=== PATIENT | male | born 2005 | race Caucasian/White ===

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

== ENCOUNTER 2023-10-27 11:31 | Emergency (ER) | payer OTHER, SELFPAY ==
--- NOTE | ~2023-10-27 | XR_ITS ---
EXAMINATION: XR hand LT min 3V DATE: 10/27/2023 11:50 INDICATION: Left hand injury and pain. TECHNIQUE: 3 views of left hand were obtained. COMPARISON: Left hand radiographs 06/08/2021 FINDINGS: There is an extra-articular oblique fracture of first metacarpal. The distal fracture fragm ent demonstrates 3 mm ulnar displacement and 4 mm palmar displacement. Joint spaces are normal. IMPRESSION: 1. Oblique fracture of first metacarpal. Reviewed, dictated and finalized at location A.
[2023-10-27 11:42] VITALS: BP 126/66; PULSE 55; RESP 18; TEMP 37.1; O2SAT 100
--- NOTE | 2023-10-27 11:43 | ED.UPPEXIN ---
HPI - Extremity Injury (Upper) General Chief Complaint: Extremity Injury, Upper Stated Complaint: x-ray for left hand Time Seen by Provider: 10/27/23 11:50 Source: patient and RN notes reviewed Mode of arrival: ambulatory Limitations: no limitations History of Present Illness HPI narrative: 18-year-old male presents concern for left hand injury. Reports this morning he caught the hand between 2 heavy metal parts on a tractor. Reports swelling, pain beneath the 1st digit. Denies decreased strength, sensation MD complaint: injury to: left and hand Related Data Home Medications Medication Instructions Recorded Confirmed albuterol 90 mcg/actuation aerosol 90 mcg inhalation PRN PRN 10/27/23 10/27/23 inhaler Shortness Of Breath Or Wheezing Allergies Allergy/AdvReac Type Severity Reaction Status Date / Time pineapple AdvReac Intermediate Swelling Verified 10/27/23 11:39 amoxicillin AdvReac Mild Rash Verified 10/27/23 11:39 clavulanic acid AdvReac Mild Rash Verified 10/27/23 11:39 Review of Systems Review of Systems: CONSTITUTIONAL: Denies malaise, chills, sweats, or fever. SKIN: Denies rash or itching, open skin, laceration, abrasion, redness, warmth MUSCULOSKELETAL: Reports left hand pain and swelling NEUROLOGIC: Denies numbness, weakness All systems reviewed & are unremarkable except as noted in HPI and below PMFSH Past Medical History Medical History (Updated 10/27/23 @ 12:00 by Lakeshia Hurst NP) Asthma Gilbert syndrome Surgical History Surgical History (Updated 11/19/20 @ 11:35 by Qing Mckee MD) No pertinent past surgical history Social History Social History (Updated 11/19/20 @ 11:35 by Qing Mckee MD) Smoking status: Never smoker Alcohol intake: current Substance use: never Comments At time of signature, agree with nursing past medical, surgical, social and family history. There is no relevant family history pertinent to the presenting complaint Exam Narrative: GENERAL: Well-appearing, well-nourished, and in no acute distress. HEAD: Normocephalic EYES: PERRLA, conjunctivae clear NECK: Supple. CHEST: Speaks in full sentences. No respiratory distress. HEART: Regular rate and rhythm. Normal and equal peripheral pulses. EXTREMITIES: Left hand and digits of hand have grossly normal strength and sensation. 5/5 strength with for digit flexion, extension. Range of motion in the 1st digit limited due to swelling and pain. No clubbing, cyanosis. Edema and tenderness noted beneath the 1st digit. Skin intact. Normal digital cascade with flexion of fingers, median, ulnar and radial nerve intact. Normal sensation of each side of finger. No scissoring. Normal thumb opposition. Good capillary refill and radial pulse. Distal capillary refill less than 3 seconds. Patient is right/left hand dominant SKIN: Warn, dry, intact, pink. No rash NEURO: Alert and oriented x3. PSYCH: Normal mood and affect Course Course Emergency Course: Patient is aware of diagnosis, understands and agrees to treatment plan. Anticipatory guidance given. Patient agrees to follow-up as directed and is aware of reasons to seek care at the emergency department. Portions of this record may have been created with voice recognition software Level of Care: Express Care Visit Vital Signs Vital signs: Reviewed. Procedures Orthopedic Splinting/Casting Injury #1: Splinting/Casting Date: 10/27/23 Splinting/Casting Time: 12:00 Side: left Upper Extremity Injury Location: hand Splint: customized in ED OCL: thumb spica Pre-Procedure Neuro Vascular Exam: normal Post-Procedure Neuro Vascular Exam: normal Other Orthopedic Equipment: other (sling) MDM - Extremity Injury (Upper) Imaging Data My impression: Images reviewed, interpreted by radiologist, agree, see report. Radiologist's impression: EXAMINATION: XR hand LT min 3V DATE: 10/27/2023 11:50 I
== END 2023-10-27 12:09 | disposition home or self-care (01) ==
PROVIDERS: Emergency Provider Nurse Practitioner
DX: S62.292A Other fracture of first metacarpal bone, left hand, initial encounter for closed fracture (principal); X58.XXXA Exposure to other specified factors, initial encounter; J45.909 Unspecified asthma, uncomplicated; E80.4 Gilbert syndrome
CPT/HCPCS: 29125; 73130; 99214; A4565; G0463

== ENCOUNTER 2023-10-29 11:53 | Day surgery (SDC) | payer OTHER, SELFPAY ==
--- NOTE | 2023-10-28 11:05 | SUR.PREOP ---
During pre-op interview regarding surgery at [facility], pt states has Gilbert's syndrome and get jaundice about one time per week. Spoke with Dr. Ludwig regarding pt's condition who states pt okay to come to [facility] for surgery.
--- NOTE | ~2023-10-29 | XR_ITS ---
XR surgery orthopedic Ordering provider: Tre Gonzales MD History: . CL REDUCTION LEFT 1ST METACARPAL PINNING . Comparison: None. FINDINGS impression: Intraoperative films for fixation of the first metacarpal bone fracture. 2 K wires were placed. Good alignment is seen. Fluoroscopy time 1 minute and 5 seconds. Total Dopp 6.7 cGY/cm2. Reviewed, dictated and finalized at location A.
--- NOTE | 2023-10-29 07:06 | WPDHPUPDATE1 ---
History and Physical Update Update Date/Time: 10/29/23 07:06 Patient seen and examined in pre-operative holding area. No interval change in medical history or symptoms. Patient recalls previous discussion of benefits and alternatives to procedure. Continues to desire to proceed with left thumb closed possible open reduction and pin fixation. Reviewed procedure, post-op expectations and risks including but not limited to bleeding, infection, injury to tendon/nerve/vessel, decreased hand function, stiffness, RSD, no change or worsening of symptoms, malunion, nonunion. I discussed the possible use of assistants and their participation in the case. Patient stated understanding and signed the consent form wishing to proceed.
--- NOTE | 2023-10-29 07:07 | W.PM.PROC2 ---
Procedure Note - Detailed Date of Procedure 10/29/23 Pre-op Diagnosis Left Hand Fracture of First Metacarpal Bone Post-op Diagnosis Same Procedure Performed left thumb metacarpal fracture crpp Surgeon Tre Gonzales MD Anesthesia MAC Description of Procedure INFORMED CONSENT: The patient was seen and examined and marked in the pre-op area.? The patient signed the consent form. PROCEDURE IN DETAIL:The patient taken back to OR on the stretcher in supine position. Time out performed with anesthesia, surgeon and staff agreeing on patient's name site and surgery to be performed SCDs were placed on the lower extremities and inflated. A tourniquet was placed on {left} upper extremity and antibiotics given IV After anesthesia administered sedation I injected {6}cc 1%lido and 0.5% marcaine plain at the operative site The?{left upper extremity}?was prepped and draped in sterile fashion the??{left upper extremity} was? exsanguinated with Esmarch bandage and tourniquet inflated to 250mmHg The mini C-arm was draped and brought into the field. Using fluoroscopy I identified the fracture and proceeded with closed reduction maneuvers. I was able to achieve reasonable reduction with these maneuvers though this was unstable. I proceeded with placing two 0.045 K-wires in retrograde crossing fashion to secure the fracture. Pin placement and fracture reduction was evaluated with multiple views of fluoroscopy and appeared stable and well reduced. The pins were trimmed to an appropriate length. The pins were covered with a Betadine-soaked alcohol swab. A dressing of 4x4, asher, and a thumb spica splint was then applied and secured with an leo bandage after the tourniquet was let down noting the hand was warm and well perfused. The patient was then awaken from anesthesia and transferred to the recovery room in stable condition.? Complications - none EBL- 0cc Disposition - home in stable conditions [facility] Billing Surgery - Charge Forward: Surgery Billing ([id number] )
[2023-10-29] MEDS: LACTATED RINGERS 1,000 ML 30 ML IV CONT (12:30)
--- NOTE | 2023-10-29 12:30 | WPDANESEPPF ---
Anes - Initial Pre Proc Eval Procedure: Operation Date: 10/29/23 13:30 Proposed Procedures p Left Thumb Metacarpal Fracture Closed Reduction Perutaneous Pinning, Possible Open Reduction Internal Fixation - Tre Gonzales MD Date/Time: 10/29/23 12:30 Surgeon: Tre Gonzales MD Pre Op Diagnosis: Left Hand Fracture of First Metacarpal Bone Patient Data Age: 18 Gender: M Height: 1.8 m Weight: 66 kg Allergies Allergy/AdvReac Type Severity Reaction Status Date / Time pineapple AdvReac Intermediate Swelling Verified 10/29/23 12:19 amoxicillin AdvReac Mild Rash Verified 10/29/23 12:19 clavulanic acid AdvReac Mild Rash Verified 10/29/23 12:19 Home Medications Medication Instructions Recorded Confirmed Type albuterol 90 mcg/actuation aerosol 90 mcg inhalation PRN PRN 10/27/23 10/29/23 History inhaler Shortness Of Breath Or Wheezing cephalexin 500 mg capsule 500 mg PO Q8H #21 caps 10/29/23 Rx hydrocodone 5 mg-acetaminophen 325 1 tablet PO Q6H PRN pain #12 tabs 10/29/23 Rx mg tablet Patient hx anesthesia problems: none Family hx anesthesia problems: post op nausea/vomiting Results Review: All pre-operative results and documents have been reviewed as part of the pre-operative evaluation. [facility] Past Medical History Medical History Asthma Gilbert syndrome Surgical History Surgical History No pertinent past surgical history Social History Social History Smoking status: Current every day smoker Tobacco type: e-cigarettes/vaping Alcohol intake: current Drinks per week: 6 Substance use: former Substance use type: marijuana Anes - Eval Final PreProcedure Day of Procedure 10/29/23 12:30 Patient weight: normal Heart: regular rate and rhythm Lungs: clear to auscultation Airway: Mallampati scale class II Neurological: alert and oriented Last oral intake: >/= 8 hours ASA classification: III Emergent: no Anesthetic plan: proceed Anesthesia type and monitoring: general LMA and standard monitoring Results Review: All pre-operative results and documents have been reviewed as part of the pre-operative evaluation. Informed Consent: The patient's anesthetic plan and its attendant risks and benefits were discussed with the patient/family/POA. Questions were solicited and answers provided to the satisfaction of the patient/family/POA.
[2023-10-29 12:31] VITALS: BP 127/76; PULSE 63; RESP 15; TEMP 37.5; O2SAT 100
[2023-10-29] MEDS: ceFAZolin SODIUM 2 GM/20 ML SW SYRINGE IV PUSH (12:48)
[2023-10-29] MEDS: LIDOCAINE HCL 1% LOCAL INJ 20 ML VIAL 4 ML INFILTRATE (12:58)
[2023-10-29] MEDS: BUPivacaine HCL 0.5% 10 ML AMP 4 ML INFILTRATE (12:58)
[2023-10-29 13:28] VITALS: BP 82/52; PULSE 48; RESP 12; O2SAT 97
--- NOTE | 2023-10-29 13:40 | WPDANESPN ---
Anes - Prog Note Post-Op Date/Time: 10/29/23 13:40 Cardiovascular status: normal Respiratory status: normal Airway patency: baseline Mental status: baseline Post-Op hydration status: normal Vital Signs: Last Vital Signs Temp 37.5 C 10/29/23 12:31 Pulse 48 L 10/29/23 13:28 Resp 12 10/29/23 13:28 BP 82/52 L 10/29/23 13:28 Pulse Ox 97 10/29/23 13:28 O2 Del Method Room Air 10/29/23 13:28 Pain Score (VAS): 0 I/O: Intake & Output 10/28/23 10/29/23 10/29/23 23:59 07:59 15:59 Intake Total 700 Balance 700 Patient Feedback: Patient satisfied with anesthetic care.
[2023-10-29 13:45] VITALS: BP 91/47; PULSE 43; RESP 14; O2SAT 96
[2023-10-29 14:00] VITALS: BP 103/67; PULSE 66; RESP 16; O2SAT 100
[2023-10-29 14:12] VITALS: BP 105/62; PULSE 59; RESP 16; O2SAT 100
== END 2023-10-29 14:25 | disposition home or self-care (01) ==
LOC: ASC 11:56
PROVIDERS: Visit Provider Plastic Surgery
PROC: (CPT 26608; principal; 2023-10-29 13:30)
DX: S62.292A Other fracture of first metacarpal bone, left hand, initial encounter for closed fracture (principal)
CPT/HCPCS: 26608; 99199

== ENCOUNTER 2023-11-10 11:45 | Outpatient (CLI) | payer OTHER, SELFPAY ==
--- NOTE | ~2023-11-10 | XR_ITS ---
XR hand LT min 3V Ordering provider: Karolyn Tse PA-C History: . RECHECK ON FX . Comparison: October 27, 2023 FINDINGS: BONES/impression: Status post fixation of the fracture seen in the first metacarpal bone by 2 K wires with good alignment. overlying cast is seen. JOINT SPACES: Well maintained. SOFT TISSUES: Unremarkable. Reviewed, dictated and finalized at location A.
== END 2023-11-10 11:46 | disposition home or self-care (01) ==
PROVIDERS: Visit Provider Physician Assistant Surgical
DX: S62.202A Unspecified fracture of first metacarpal bone, left hand, initial encounter for closed fracture (principal); X58.XXXA Exposure to other specified factors, initial encounter
CPT/HCPCS: 73130

== ENCOUNTER 2023-11-30 14:26 | Outpatient (CLI) | payer OTHER, SELFPAY ==
--- NOTE | ~2023-11-30 | XR_ITS ---
EXAMINATION: XR hand LT min 3V DATE: 11/30/2023 15:21 INDICATION: Unspecified fracture of left first metacarpal. TECHNIQUE: 4 views of left hand were obtained. COMPARISON: Left hand radiograph 11/10/2023 FINDINGS: There is an oblique fracture of proximal diaphysis of first metacarpal. The distal fracture fragment demonstrates near-anatomic alignment. Fixation is seen with 2 percutaneous wires. Splint ma terial obscures fine bone detail. Joint spaces are normal. IMPRESSION: 1. Oblique fracture of proximal diaphysis of first metacarpal with percutaneous fixation. Reviewed, dictated and finalized at location E.
== END 2023-11-30 14:27 | disposition home or self-care (01) ==
PROVIDERS: Visit Provider Physician Assistant Surgical
DX: S62.202D Unspecified fracture of first metacarpal bone, left hand, subsequent encounter for fracture with routine healing (principal); X58.XXXD Exposure to other specified factors, subsequent encounter
CPT/HCPCS: 73130

== ENCOUNTER 2023-11-30 16:26 | Outpatient (CLI) | payer OTHER, SELFPAY ==
--- NOTE | ~2023-11-30 | XR_ITS ---
EXAMINATION: XR hand LT min 3V DATE: 11/30/2023 16:50 INDICATION: Unspecified fracture of left first metacarpal. TECHNIQUE: 3 views of left hand were obtained. COMPARISON: Left hand radiographs 11/30/2023 FINDINGS: There is a transverse fracture of proximal diaphysis of first metacarpal in near-anatomic a lignment. Early callus formation is noted. Joint spaces are normal. IMPRESSION: 1. Healing transverse fracture of proximal diaphysis of first metacarpal. Reviewed, dictated and finalized at location E.
== END 2023-11-30 16:27 | disposition home or self-care (01) ==
LOC: ANHIMG 16:27
PROVIDERS: Visit Provider Physician Assistant Surgical
DX: S62.202D Unspecified fracture of first metacarpal bone, left hand, subsequent encounter for fracture with routine healing (principal); X58.XXXD Exposure to other specified factors, subsequent encounter
CPT/HCPCS: 73130